=== PATIENT | female | born 1965 ===

== ENCOUNTER 2019-07-31 15:01 | Emergency (ER) | payer OTHER, SELFPAY ==
[2019-07-31 15:08] VITALS: BP 128/68; PULSE 79; RESP 16; TEMP 36.5; O2SAT 100
--- NOTE | 2019-07-31 15:20 | ED.UPPEXIN ---
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 Her wrist is now painful with usage but otherwise has no pain is bruised on palmar side of right wrist Related Data Home Medications Medication Instructions Recorded Confirmed levothyroxine 75 mcg PO DAILY 07/31/19 07/31/19 Allergies Allergy/AdvReac Type Severity Reaction Status Date / Time morphine Allergy Severe Rash Verified 07/31/19 15:22 codeine AdvReac Severe CONFUSED Verified 04/01/09 17:22 AND SOMULENT Penicillins AdvReac Severe CONFUSED Verified 04/01/09 09:36 AND SOMNOLENT (TO CILLINS ) Review of Systems Review of Systems: Narrative: CONSTITUTIONAL: Denies fever, chills, sweats. EYES: Denies visual changes, redness, discharge. ENT: Denies rhinorrhea, congestion, sore throat, otalgia. CARDIOVASCULAR: Denies chest pain, palpitations, edema. RESPIRATORY: Denies dyspnea, wheezing, cough GASTROINTESTINAL: Denies abdominal pain, nausea, vomiting, diarrhea. GENITOURINARY: Denies dysuria, hematuria, abnormal discharge SKIN: Denies rash or itching. NEUROLOGIC: Denies numbness, or focal weakness. PSYCHIATRIC: Denies anxiety or depression. [facility] Family History Family History Other Diabetes mellitus Heart disease Hypertension Social History Social History (Updated 07/31/19 @ 15:29 by Dolores Rob CNP) Smoking status: Former smoker Alcohol intake: never Comments At time of signature, I agree with nursing past medical, surgical, social and family history. There is no relevant family history pertinent to the presenting complaint. Exam Narrative: Exam Narrative: GENERAL: This is a well-nourished, well-developed patient, in no distress. HEAD: normocephalic, atraumatic. EYES: Sclera clear/white. Vision is grossly intact. EARS: External ears normal, Hearing grossly intact. NOSE: External nose normal without nasal discharge, nares without redness, no rhinorrhea. THROAT: Mucous membranes moist, NECK: Neck supple, CARDIOVASCULAR: Regular rate and rhythm without murmurs, gallops, or rubs. RESPIRATORY: Clear to auscultation. Breath sounds equal bilaterally. No wheezes, rales, or rhonchi. GASTROINTESTINAL: Abdomen soft, SKIN: warm, intact with no suspicious lesions or rash, good texture and turgor. NEURO: awake, alert, and oriented to person, place and time. There were no obvious focal neurologic abnormalities. Steady gait EXTREMITIES: Normal range of motion. Right palmar ecchymosis at wrist joint, 3 x 5, nontender, non-indurated, occurred in the last day or 2 as color is consistent BACK: Nontender without deformity Course Vital Signs Vital signs: Vital Signs Temperature 97.7 F 07/31/19 15:08 Pulse Rate 79 07/31/19 15:08 Respiratory Rate 16 07/31/19 15:08 Blood Pressure 128/68 07/31/19 15:08 Pulse Oximetry 100 07/31/19 15:08 Temperature 97.7 F 07/31/19 15:08 Pulse Rate 79 07/31/19 15:08 Respiratory Rate 16 07/31/19 15:08 Blood Pressure 128/68 07/31/19 15:08 Pulse Oximetry 100 07/31/19 15:08 MDM - Extremity Injury (Upper) Differential Diagnosis Differential diagnosis: Likely sprain and strain of wrist and other (Ecchymosis of wrist) Discharge Plan Discharge Clinical Impression: Ecchymosis of wrist Patient Disposition: Home, Self-Care Condition: Stable Instructions: Ecchymosis (ED) Prescriptions: No Action levothyroxine 75 mcg Tablet 75 mcg PO DAILY RF: 0 Follow-up/Referrals: YADIRA,Ubaldo BRADSHAW [Primary Care Provider] - Time of Disposition:
== END 2019-07-31 15:37 | disposition home or self-care (01) ==
PROVIDERS: Emergency Provider Nurse Practitioner; PCP Family Medicine
DX: S60.211A Contusion of right wrist, initial encounter (principal); Z87.891 Personal history of nicotine dependence; X50.3XXA Overexertion from repetitive movements, initial encounter
CPT/HCPCS: 99202; G0463

== ENCOUNTER 2020-11-10 15:04 | Emergency (ER) | payer OTHER, SELFPAY ==
--- NOTE | ~2020-11-10 | XR_ITS ---
EXAMINATION: XR heel RT min 2V DATE: 11/10/2020 15:34 INDICATION: Right heel pain. TECHNIQUE: 2 views of right calcaneus were obtained. COMPARISON: None. FINDINGS: Bone alignment is normal. No fracture. There is mild midfoot osteoarthritis. There is an en thesophyte at the plantar aspect of calcaneal tuberosity. IMPRESSION: 1. No fracture. Reviewed, dictated and finalized at location A. IMPRESSION: 1. No fracture.
--- NOTE | 2020-11-10 15:13 | ED.BACK ---
HPI - Back Pain/Injury General Chief Complaint: Extremity Injury, Lower Stated Complaint: Pain in right Heel of Foot and pain back of (R)Leg Time Seen by Provider: 11/10/20 15:13 Source: patient and RN notes reviewed History of Present Illness HPI Narrative: Patient is a 54-year-old female who presents the urgent care with complaints of right heel pain that radiates up the right leg. Patient states that she only feels the pain when she bears weight. States that it started 5 days ago but the last couple days have been worse. Denies of any trauma or injury to the foot. Patient states that she has experienced this in the past but it has resolved on its own. Patient states she has a caregiver and is on her feet at all times. No other acute complaints. No acute distress noted. Patient aware of the plan of care. Some parts of this dictation were generated by voice recognition software and may contain typographical and/or grammatical inaccuracies. Related Data Home Medications Medication Instructions Recorded Confirmed levothyroxine 75 mcg PO DAILY 07/31/19 07/31/19 Allergies Allergy/AdvReac Type Severity Reaction Status Date / Time morphine Allergy Severe Rash Verified 11/10/20 15:27 codeine AdvReac Severe CONFUSED Verified 11/10/20 15:27 AND SOMULENT Penicillins AdvReac Severe CONFUSED Verified 11/10/20 15:27 AND SOMNOLENT (TO CILLINS ) Review of Systems Review of Systems: CONSTITUTIONAL: Denies fever, chills, or sweats. EYES: Denies visual changes, redness, or discharge. ENT: Denies rhinorrhea, congestion, sore throat, or otalgia. CARDIOVASCULAR: Denies chest pain, palpitations, or edema. RESPIRATORY: Denies cough or dyspnea. GASTROINTESTINAL: Denies abdominal pain, nausea, vomiting, or diarrhea. GENITOURINARY: Denies dysuria or hematuria. SKIN: Denies rash or itching. MUSCULOSKELETAL: Reports of right heel pain NEUROLOGIC: Denies headache, numbness, or weakness. All other systems reviewed are negative, except as documented in HPI. [facility] Family History Family History Other Diabetes mellitus Heart disease Hypertension Social History Social History (Updated 07/31/19 @ 15:29 by Dolores Rob CNP) Smoking status: Former smoker Alcohol intake: never Comments At the time of my signature, I reviewed and agree with the nursing past medical, surgical, social, and family history. There is no relevant family history pertinent to the patient complaint. Exam Narrative: GENERAL: This is a well-nourished, well-developed patient, in no apparent distress. HEAD: normocephalic, atraumatic. EYES: PERRL. Sclera clear/white. Vision is grossly intact. EARS: External ears normal NOSE: External nose normal with no obvious nasal discharge, nares without redness, no rhinorrhea. THROAT: Mucous membranes moist NECK: Neck supple CARDIOVASCULAR: Regular rate and rhythm without murmurs, gallops, or rubs. RESPIRATORY: Clear to auscultation. Breath sounds equal bilaterally. No wheezes, rales, or rhonchi. SKIN: warm, intact with no suspicious lesions or rash, good texture and turgor. NEURO: awake, alert, and oriented to person, place and time. There were no obvious focal neurologic abnormalities. EXTREMITIES: No obvious deformity noted to the right lower extremity. No edema/ecchymosis/erythema. Moderate tenderness to the bottom of the right heel with exacerbated pain on weightbearing/ambulation. Positive strong right pedal pulse with capillary refill less than 2 seconds. Course Vital Signs Vital signs: Vital Signs Temperature 99 F 11/10/20 15:17 Pulse Rate 67 11/10/20 15:17 Respiratory Rate 18 11/10/20 15:17 Blood Pressure 128/74 11/10/20 15:17 Pulse Oximetry 100 11/10/20 15:17 Temperature 99 F 11/10/20 15:17 Pulse Rate 67 11/10/20 15:17 Respiratory Rate 18 11/10/20 15:17 Blood Pressure 128/74 05
[2020-11-10 15:17] VITALS: BP 128/74; PULSE 67; RESP 18; TEMP 37.2; O2SAT 100
--- NOTE | 2020-11-10 15:34 | PC.NURSE ---
PT DECLINED ICE AND WHEELCHAIR TO RADIOLOGY
== END 2020-11-10 16:05 | disposition home or self-care (01) ==
PROVIDERS: Emergency Provider Nurse Practitioner Family
DX: M19.071 Primary osteoarthritis, right ankle and foot (principal); Z87.891 Personal history of nicotine dependence
CPT/HCPCS: 73650; 99213; G0463

== ENCOUNTER 2021-04-19 15:43 | Emergency (ER) | payer OTHER, SELFPAY ==
[2021-04-19 15:54] VITALS: BP 126/72; PULSE 66; RESP 14; TEMP 36.9; O2SAT 100
--- NOTE | 2021-04-19 16:13 | ED.FEMALEGU ---
HPI - Female Genitourinary General Chief complaint: Urogenital-Female Stated complaint: Urinary Problem Time Seen by Provider: 04/19/21 16:13 Source: patient and family History of Present Illness HPI Narrative: Patient presents with burning with urination for the past 3 days. No gross hematuria no flank pain no abdominal pain no pelvic pain no vaginal discharge and no concern for STDs. Related Data Home Medications Medication Instructions Recorded Confirmed levothyroxine 75 mcg PO DAILY 07/31/19 04/19/21 Allergies Allergy/AdvReac Type Severity Reaction Status Date / Time morphine Allergy Severe Rash Verified 04/19/21 16:02 codeine AdvReac Severe CONFUSED Verified 04/19/21 16:02 AND SOMULENT Penicillins AdvReac Severe CONFUSED Verified 04/19/21 16:02 AND SOMNOLENT (TO CILLINS ) STEROIDS AdvReac Diarrhea Uncoded 04/19/21 16:03 Review of Systems Review of Systems: CONSTITUTIONAL: Denies fever, chills, or sweats. EYES: Denies visual changes, redness, or discharge. ENT: Denies rhinorrhea, congestion, sore throat, or otalgia. CARDIOVASCULAR: Denies chest pain, palpitations, or edema. RESPIRATORY: Denies cough or dyspnea. GASTROINTESTINAL: Denies abdominal pain, nausea, vomiting, or diarrhea. GENITOURINARY: Denies dysuria or hematuria. SKIN: Denies rash or itching. MUSCULOSKELETAL: Denies back pain, joint pain, or myalgia. NEUROLOGIC: Denies headache, numbness, or weakness. PSYCHIATRIC: Denies anxiety or depression. [facility] Family History Family History Other Diabetes mellitus Heart disease Hypertension Social History Social History (Updated 07/31/19 @ 15:29 by Dolores Rob CNP) Smoking status: Former smoker Alcohol intake: never Comments At time of signature, agree with nursing past medical, surgical, social and family history. There is no relevant family history pertinent to the presenting complaint Exam Narrative: GENERAL: Well-appearing, well-nourished, and in no acute distress. HEAD: Normocephalic, atraumatic. EYES: PERRLA and EOMI. ENT: Nares clear, no rhinorrhea or epistaxis. Mucous membranes moist. NECK: Supple. CHEST: Clear to auscultation. No respiratory distress. HEART: Regular rate and rhythm. No murmur heard. Normal peripheral pulses. ABDOMEN: Soft, nontender, nondistended, normal active bowel sounds. EXTREMITIES: Normal range of motion. No edema. SKIN: Warm, dry, no rash. NEURO: No focal deficits. Alert and oriented x3. Kevin Coma Scale Eye Opening: Spontaneous 4 [place] Coma Scale Motor: Obeys Commands 6 Kevin Coma Scale Verbal: Oriented 5 Kevin Coma Scale Total 15 Course Course Level of Care: Express Care Visit Vital Signs Vital signs: Vital Signs Temperature 36.9 C 04/19/21 15:54 Pulse Rate 66 04/19/21 15:54 Respiratory Rate 14 04/19/21 15:54 Blood Pressure 126/72 04/19/21 15:54 Pulse Oximetry 100 04/19/21 15:54 Temperature 36.9 C 04/19/21 15:54 Pulse Rate 66 04/19/21 15:54 Respiratory Rate 14 04/19/21 15:54 Blood Pressure 126/72 04/19/21 15:54 Pulse Oximetry 100 04/19/21 15:54 Critical dx considered and discussed with pt. Educated patient on red flag s/s and to go to ED if s/s occur. Discussed with pt when to return to Express [facility] or primary care provider. Pt gave verbal undertstanding, all questions were answered, and pt was agreeable to plan Increase fluids we will call you in 48 to 72 hours if the antibiotic needs to be changed due to the culture results. MDM - Female Genitourinary Differential Diagnosis Differential diagnosis: Likely urinary tract infection, bacterial vaginosis, trichomoniasis, cervicitis, ovarian cyst, vaginitis, ruptured ovarian cyst, cyst of Bartholin's gland, cystitis and dysmenorrhea Critical Care Time Critical Care Time Critical Care Time: No Discharge Plan Discharge Clinical Impression: Urinary tract i
== END 2021-04-19 16:25 | disposition home or self-care (01) ==
PROVIDERS: Emergency Provider Nurse Practitioner Family
DX: N39.0 Urinary tract infection, site not specified (principal); Z87.891 Personal history of nicotine dependence; E03.9 Hypothyroidism, unspecified
CPT/HCPCS: 81003; 87086; 87088; 99213; G0463